=== PATIENT | male | born 1985 | race African-American/Black ===

== ENCOUNTER 2016-08-07 18:23 | Emergency (ER) | payer OTHER ==
[2016-08-07 18:44] VITALS: BP 122/94
--- NOTE | 2016-08-07 20:29 | PROVIDER DOCUMENTATION ---
HPI-Musculoskeletal Pain/Inj - GENERAL Chief Complaint: Extremity Pain Stated Complaint: KNEE PAIN Time Seen by Provider: 08/07/16 20:20 Source: patient - HX OF PRESENT ILLNESS-MUSKULOSKELTAL Nature of Presenting Problem: 30 yo male presents to ER with c/o right knee pain that started last night getting out of a car. He has never had problems with this knee before. He denies a known injury. He does referee basketball. Quality of Pain: reports: aching Severity in ED: mild Onset/Duration: last night Timing: still present Modifying Factors: improves with: movement (worsens), other (walking worsens) Any recent injury?: No Similar Symptoms Previously?: No Recently seen or treated by another doctor?: No - LOWER EXTREMITY PAIN/INJURY Lower Extremities Pain: knee: right Context / Method of Injury: reports: unknown Associated Symptoms: reports: denies symptoms Review of Systems - Adult - REVIEW OF SYSTEMS - ADULT Constitutional: reports: no symptoms reported Eyes: reports: no symptoms reported Ears, Nose, Mouth & Throat: reports: no symptoms reported Cardiovascular: reports: no symptoms reported Respiratory: reports: no symptoms reported Gastrointestinal: reports: no symptoms reported Genitourinary: reports: no symptoms reported Musculoskeletal: reports: see HPI, joint pain Integumentary: reports: no symptoms reported Neurological: reports: no symptoms reported Psychiatric: reports: no symptoms reported Endocrine: reports: no symptoms reported Hematologic/Lymphatic: reports: no symptoms reported Allergic/Immunologic: reports: no symptoms reported All Other Systems: Reviewed and Negative Past History - Adult - PAST MEDICAL HISTORY-ADULT Review of Records: reports: Old Records Reviewed, Nursing Assessment Review, Medications Reviewed, Social history reviewed & non-contributory. Major Childhood Illnesses: reports: denies history Cardiovascular: reports: denies history Respiratory: reports: denies history Gastrointestinal: reports: denies history Obstetrical/Gynecological: reports: denies history Genitourinary: reports: denies history Musculoskeletal: reports: denies history Neurological: reports: denies history Endocrine/Immune: reports: Diabetes Other Conditions: reports: denies history - PRIOR SURGERIES/PROCEDURES Surgical/Procedure History: reports: none - IMMUNIZATION STATUS Childhood Immunizations: See Nurse Assessment Flu Vaccine: See Nurse Assessment - FAMILY HISTORY Family History: reviewed, not pertinent - SOCIAL HISTORY Smoking: denies, non-smoker Substance Use: none/never, denies Alcohol Use Frequency: never Living Situation: family Physical Exam-Injury Related - Physical Exam-Injury Related Initial Vital Signs Reviewed: Yes General Appearance: appears well, alert, no apparent distress Eyes: PERRL/EOMI Head, Ears, Nose, Mouth & Throat: normocephalic/atraumatic Respiratory: no respiratory distress Extremity: swelling (mild swelling surrounding right knee joint), tenderness ( mild TTP over right patella), other (intact ROM with moderate crepitus and mild pain. Slight limp on right leg) Integumentary: normal color, warm/dry Neurologic: grossly normal Psych/Mental Status: normal mood/affect, normal thought content, normal thought process, oriented x 3 - Glascow Coma Score Best Eye Response (Cande): (4) open spontaneously Best Verbal Response (Cande): (5) oriented Best Motor Response (Cande): (6) obeys commands Cande Total: 15 Progress - PLAN OF CARE/RESULTS Progress/Plan/Lab Results: 2024-Discussed dx/tx/discharge and follow up instructions with patient; he verbalized understanding. Vital Signs - 24 hr 08/07/16 18:39 Temperature 98 F Pulse Rate 81 Respiratory 18 Rate Blood Pressure 122/94 O2 Sat by Pulse 100 Oximetry Departure - Departure Time of Disposition Order: 20:29 DIAGNOSIS: Knee pain, right Qualifiers: Chronicity: acute Qualified Code(s): M25.561 - Pain in right knee Knee joint effusion Qualifiers: Laterality: right Qualified Code(s): M25.461 - Effusion, right knee Right knee sprain Qualifiers: Encounter type: initial encounter Involved ligament of knee: unspecified ligament Qualified Code(s): S83.91XA - Sprain of unspecified site of right knee , initial encounter Disposition: HOME 01 Certified Medical Emergency: Emergent Condition: Good Additional Instructions: Follow up with primary care doctor or orthopedic doctor for continues problems. Elevate and apply ice for 20 minutes several times a day. Wear a soft knee brace as needed for support. Take medications as prescribed. Perform exercises to strengthen quad muscles. ED Follow Up Instructions: You have been treated by a care provider in the Emergency Department. These instructions are being provided to you so you can have an understanding of how to care for yourself upon discharge. Upon discharge from the Emergency Department, you are responsible for making arrangements for follow-up care by a physician of your choice. Take all prescribed medications as directed. Return to the Emergency Department immediately for any new or worsening symptoms. You may call the Physician Referral phone number at [phone] to obtain a list of Physicians who are taking new patients. Prescriptions: Naproxen 500 mg PO BID PRN PRN #20 tablet PRN Reason: Pain Referrals: Rochelle Tejeda [Primary Care Provider] - Forms: Return to School/Parent Work Instructions: Knee Pain, Naproxen; Sumatriptan tablets, Knee Effusion, Easy-to- Read, Knee Sprain Attestation - Physician/ CHALO Attestation Patient care was provided by Advanced Practice Provider:: Yes Advanced Practice Provider:: Rose Meyers Advanced Practice Provider documentation review:: The Mid-level provider documentation, treatment plan and medical decision making was reviewed by the physician who agrees with all treatment and medical decision making by the MLP.
== END 2016-08-07 20:20 | disposition home or self-care (01) ==
LOC: P.ED 18:23
DX: S83.91XA Sprain of unspecified site of right knee, initial encounter (principal); M25.561 Pain in right knee; M25.461 Effusion, right knee; E11.9 Type 2 diabetes mellitus without complications
CPT/HCPCS: 99282